=== PATIENT | female | born 1945 | race Caucasian/White ===

== ENCOUNTER → 2016-09-10 | Outpatient (CLI) | payer MEDICARE ==
--- NOTE | 2016-09-13 13:24 | MM ---
Reason for exam: screening (asymptomatic). Last mammogram was performed 2 years and 8 months ago. History: Patient is postmenopausal. Benign excisional biopsy of the left breast. Took progesterone. Physical Findings: A clinical breast exam by your physician is recommended on an annual basis and results should be correlated with mammographic findings. MG Screening Mammo w CAD Bilateral CC and MLO view(s) were taken. Prior study comparison: January 25, 2014, left breast MG diagnostic mammo LT w CAD. April 21, 2013, CAD bilateral diagnostic mammogram. August 07, 2011, bilateral digital screening mammo w/CAD. May 01, 2010, bilateral digital screening mammogram. The breast tissue is heterogeneously dense. This may lower the sensitivity of mammography. There is chronic nodularity in the left breast. No significant changes when compared with prior studies. ASSESSMENT: Negative, BI-RAD 1 RECOMMENDATION: Routine screening mammogram of both breasts in 1 year.
== END | disposition home or self-care (01) ==
LOC: RADMAMWWP 08:33
PROVIDERS: ATTEND Family Medicine
DX: Z12.31 Encounter for screening mammogram for malignant neoplasm of breast (principal); Z78.0 Asymptomatic menopausal state; M89.9 Disorder of bone, unspecified

== ENCOUNTER 2018-10-12 12:40 | Emergency (ER) | payer MEDICARE ==
[2018-10-12 13:19] VITALS: BP 152/84; PULSE 66; RESP 18; TEMP 98.4
--- NOTE | 2018-10-12 14:05 | ED ---
Extremity Problem HPI - General Chief complaint: Extremity Problem,Nontraumatic Stated complaint: High BP/arm swelling & bruising Time Seen by Provider: 10/12/18 13:27 Source: patient, RN notes reviewed Mode of arrival: ambulatory Limitations: no limitations - History of Present Illness Initial comments: This a 72-year-old female presents emergency Department to rule out DVT of her left arm. 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 Patient states that she noticed that she had some swelling her left arm and was concerned given her history. Patient denies any trauma no pain. Patient states that there is bruising in her left antecubital fossa and states that there is a small area that is boggy in nature. - Related Data Allergies Allergy/AdvReac Type Severity Reaction Status Date / Time No Known Allergies Allergy Verified 10/12/18 13:19 Review of Systems ROS Statement: Those systems with pertinent positive or pertinent negative responses have been documented in the HPI. ROS Other: All systems not noted in ROS Statement are negative. Past Medical History Additional Past Medical History / Comment(s): pad History of Any Multi-Drug Resistant Organisms: None Reported Additional Past Surgical History / Comment(s): fempop bypass Past Psychological History: Anxiety Smoking Status: Former smoker Past Alcohol Use History: Occasional Past Drug Use History: None Reported General Exam Limitations: no limitations General appearance: alert, in no apparent distress Head exam: Present: atraumatic, normocephalic, normal inspection Respiratory exam: Present: normal lung sounds bilaterally. Absent: respiratory distress, wheezes, rales, rhonchi, stridor Cardiovascular Exam: Present: regular rate, normal rhythm, normal heart sounds. Absent: systolic murmur, diastolic murmur, rubs, gallop, clicks Extremities exam: Present: other (Left medial antecubital fossa region there is an area of ecchymosis that is nontender, area approximately 2 cm in diameter that is boggy in nature no increased warmth no erythema, pulses are equal bilaterally) Neurological exam: Present: alert, oriented X3, CN II-XII intact Skin exam: Present: warm, dry, intact Course Vital Signs 10/12/18 13:14 Temperature 98.4 F Pulse Rate 66 Respiratory 18 Rate Blood Pressure 152/84 O2 Sat by Pulse 98 Oximetry Medical Decision Making - Medical Decision Making 72-year-old female presented for concerns of possible DVT in the left arm Ultram was obtained which is negative. Patient has an area of ecchymosis/hematoma. Patient will be discharged Disposition Clinical Impression: Hematoma of arm Disposition: HOME SELF-CARE Condition: Stable Instructions (If sedation given, give patient instructions): Hematoma (ED) Additional Instructions: Please return to the Emergency Department if symptoms worsen or any other concerns. Is patient prescribed a controlled substance at d/c from ED?: No Referrals: Bev Alarcon MD [Primary Care Provider] - 1-2 days Time of Disposition: 14:51
--- NOTE | 2018-10-12 14:38 | US ---
EXAMINATION TYPE: US venous doppler duplex UE LT DATE OF EXAM: 10/12/2018 COMPARISON: NONE CLINICAL HISTORY: Pain. On blood thinners. No pain. Left arm bruising. No redness. SIDE PERFORMED: Left Left Arm: Negative for DVT Grayscale, color doppler, spectral doppler imaging performed of the deep veins of the left upper extr emity. There is normal flow, compressibility and vascular waveforms. IMPRESSION: No sonographic evidence of deep venous thrombosis within the left upper extremity.
== END 2018-10-12 14:53 | disposition home or self-care (01) ==
LOC: EC 12:40
DX: R23.3 Spontaneous ecchymoses (principal); Z87.891 Personal history of nicotine dependence
CPT/HCPCS: 99283